=== PATIENT | female | born 1960 | race Two or more races ===

== ENCOUNTER 2019-05-24 15:20 | Emergency (ER) | payer BC ==
[~2019-05-24] VITALS: Ht 157.5 cm; Wt 81.0 kg
--- NOTE | 2019-05-24 15:41 | NUR ---
BOAT PERSON: PT HAVING BLOOD DRAWN, FLIGHT SERVICE SPECIALIST TO TAKE PT TO ROOM WHEN LAB DRAW COMPLETED.
--- NOTE | 2019-05-24 15:50 | NUR ---
"MY CHEST HURTS. I SAW CYNDIE JONES, SHE SENT ME HERE. MY CHEST STARTED 05/05. I'VE BEEN HERE 4 TIMES. IT STARTED AGAIN YESTERDAY I THINK IN THE MID MORNING. THEY SAID I HAVE COSTACHONDRITIS. THIS IS THE SAME." ON MEDROL DOSE PACK. REPORTS THE FIRST DAY OF PILLS I FELT BETTER, THE DAYS AFTER MY BREATHING HAS GOTTEN WORSE
[2019-05-24 16:01] LABS: BASOPHILS # (AUTO) 0.03 x10^3/uL (0-0.1); BASOPHILS % (AUTO) 0 % (0-1); EOSINOPHILS # (AUTO) 0.04 x10^3/uL (0-0.4); EOSINOPHILS % (AUTO) 0 % (1-7); LYMPHOCYTES # (AUTO) 2.74 x10^3/uL (1-3.4); LYMPHOCYTES % (AUTO) 19 % (22-44); MD NO; MEAN CORPUSCULAR HEMOGLOBIN 30.8 pg (27.0-34.8); MEAN CORPUSCULAR HGB CONC 33.4 g/dL (32.4-35.8); MEAN CORPUSCULAR VOLUME 92.1 fL (80-100); MEAN PLATELET VOLUME 7.9 fL (7.4-10.4); MONOCYTES # (AUTO) 0.66 x10^3/uL (0.2-0.8); MONOCYTES % (AUTO) 5 % (2-9); NEUTROPHILS # (AUTO) 11.22 x10^3/uL (1.8-6.8); NEUTROPHILS % (AUTO) 76 % (42-75); PLATELET COUNT 407 x10^3/uL (130-400); RED BLOOD COUNT 5.13 x10^6/uL (3.82-5.3); RED CELL DISTRIBUTION WIDTH 13.3 % (9.6-15.2)
[2019-05-24 16:12] LABS: ALBUMIN 3.8 g/dL (3.4-5.0); ANION GAP 11 mmol/L (5-15); CALCIUM 9.3 mg/dL (8.5-10.1); CHLORIDE 106 mmol/L (98-107); CREATININE 0.98 mg/dL (0.55-1.02)
[2019-05-24 16:16] LABS: TROPONIN I < 0.015 ng/mL (0.000-0.045)
[2019-05-24 17:18] VITALS: BP 140/71
== END 2019-05-24 17:20 | disposition home or self-care (01) ==
LOC: ED 17:14
DX: M94.0 Chondrocostal junction syndrome [Tietze] (principal); R07.2 Precordial pain
CPT/HCPCS: 36415; 71045; 80048; 82040; 84484; 85025; 93005; 99284; J7512